=== PATIENT | male | born 1965 | race Caucasian/White ===

== ENCOUNTER 2016-10-03 11:16 | Day surgery (SDC) | payer OTHER ==
[2016-10-02 10:35] LABS: HEMATOCRIT 42.4 % (37.9-51.0); HEMOGLOBIN 14.4 g/dL (13.5-17.0); HGB HCT DIFFERENCE 0.8; MEAN CORPUSCULAR HEMOGLOBIN 31.6 pg (27.0-33.4); MEAN CORPUSCULAR HGB CONC 33.9 g/dL (32.0-36.0); MEAN CORPUSCULAR VOLUME 93 fl (80-97); RED BLOOD COUNT 4.54 10^6/uL (4.35-5.55); RED CELL DISTRIBUTION WIDTH 13.8 % (11.5-14.0)
[2016-10-02 11:01] LABS: ANION GAP 13 (5-19); BLOOD UREA NITROGEN 12 mg/dL (7-20); CARBON DIOXIDE 29 mmol/L (22-30); CHLORIDE 100 mmol/L (98-107); CREATININE RESULT 1.23 mg/dL (0.52-1.25); GLUCOSE 60 mg/dL (75-110); POTASSIUM 4.3 mmol/L (3.6-5.0); SODIUM 142.3 mmol/L (137-145)
[~2016-10-03 11:16] MED LIST: ACETAMINOPHEN 325 MG TABLET PO PRN; BUPIVACAINE HCL 0.25 % INJ/PF (2.5 MG/1 ML) 30 ML VIAL ONE; CEFAZOLIN 1 GM/D5W RTU 1 GM/50 ML RTUPB IV PRN; LIDOCAINE 0.5% INJ-PF (5 MG/ML) 50 ML SDV INJ PRN; RINGERS SOLUTION,LACTATED 1,000 ML IV PRN
[2016-10-03] MEDS ORDERED: MIDAZOLAM 2 MG/2 ML INJ ONE (12:12)
[2016-10-03] MEDS ORDERED: PROPOFOL INJ 200 MG/20 ML VIAL IV ONE (12:12)
[2016-10-03] MEDS ORDERED: FENTANYL CITRATE INJ/PF 250 MCG/5 ML AMPULE ONE (12:12)
[2016-10-03] MEDS ORDERED: MEPERIDINE HCL/PF INJ 25 MG/1 ML DISP.SYRIN IV PRN (12:48)
[2016-10-03] MEDS ORDERED: OXYCODONE-ACETAMINOPHEN 5-325 MG TABLET PO PRN ×3 (12:48→14:15)
[2016-10-03] MEDS ORDERED: DIPHENHYDRAMINE HCL 50 MG/ML VIAL IV PRN (12:48)
[2016-10-03] MEDS ORDERED: FENTANYL CITRATE INJ/PF 100 MCG/2 ML AMPUL IV PRN ×3 (12:48)
[2016-10-03] MEDS ORDERED: PROMETHAZINE HCL INJ 25 MG/1 ML VIAL IV PRN ×2 (12:48)
[2016-10-03] MEDS ORDERED: MORPHINE SULFATE 10 MG/ML INJ IV PRN (12:48)
[2016-10-03] MEDS ORDERED: DEXMEDETOMIDINE INJ 80 MCG/20 ML VIAL IV ONE (13:19)
[2016-10-03] MEDS ORDERED: RINGERS SOLUTION,LACTATED 1,000 ML IV PRN (14:15)
[2016-10-03] MEDS ORDERED: ONDANSETRON HCL INJ/PF 4 MG/2 ML SDV IV PRN (14:15)
--- NOTE | 2016-10-03 14:15 | PDOC DISCHARGE SUMMARY ---
Discharge Summary (SDC) - Discharge Final Diagnosis: Right inguinal hernia Date of Surgery: 10/03/16 Discharge Date: 10/03/16 Condition: Good Treatment or Instructions: Right inguinal hernia repair with mesh. May discharge patient home when met discharge criteria. Follow-up with me in 2 weeks. May shower in 2 days. Keep Steri-Strips on. Stay active but avoid strenuous activity. Prescriptions: Oxycodone HCl/Acetaminophen [Percocet 5-325 mg Tablet] 1 tab PO ASDIR PRN #35 tablet PRN Reason: Discharge Diet: As Tolerated Discharge Activity: Activity As Tolerated - Stay active but avoid strenuous activity. Report the Following to Your Physician Immediately: Fever over 101 Degrees, Unusual Bleeding, Redness, Drainage-Foul Smelling
--- NOTE | 2016-10-03 14:16 | Operative Report ---
Operative Report DATE OF SURGERY: 10/03/16 PREOPERATIVE DIAGNOSIS: Right inguinal hernia POSTOPERATIVE DIAGNOSIS: Right indirect inguinal hernia OPERATION: Right inguinal hernia repair with mesh SURGEON: HERMELINDO RUTHERFORD ANESTHESIA: GA TISSUE REMOVED OR ALTERED: Hernia sac COMPLICATIONS: None ESTIMATED BLOOD LOSS: minimal INTRAOPERATIVE FINDINGS: Indirect inguinal hernia PROCEDURE: Informed consent was obtained. Patient was brought to the operating room and placed on the operating room table in supine position. After satisfactory induction of general anesthesia patient's right groin was prepped and draped in the usual sterile fashion. A transverse right groin incision was made dissection carried down through the subcutaneous tissue, the external oblique was opened along its fascial fibers thus opening the external inguinal ring. The illioinguinal nerve was identified and protected during the dissection. The cord was mobilized at the pubic tubercle. Dissection at the anterior aspect of the cord revealed an indirect inguinal hernia sac which was dissected free from the surrounding structures up to the level of the internal ring. It was opened and high ligation of the sac was then performed at the level of the internal ring. The hernia sac was excised. The direct floor appeared markedly attenuated as well. The iliohypogastric nerve had in an aberrant course and would've been in the way of the repair therefore he was taken by clamping dividing and tying. Mesh repair was performed with [employer] commercial real estate agent mesh the sling ends were brought back together in a sling-like configuration thus re- creating the internal inguinal ring. The mesh laid flat with excellent coverage. A single fixation suture was placed at the pubic tubercle. Hemostasis appeared excellent. External oblique was closed over the repair and the cord structures using running Vicryl suture. Padma's fascia was closed with interrupted Vicryl sutures. Skin was closed with subcuticular running Monocryl suture. Marcaine was injected at the operative site. Patient tolerated procedure well with no apparent complications and was taken to the recovery area in stable condition.
[2016-10-03] MEDS ORDERED: LIDOCAINE 2% INJ-PF (20 MG/ML) 10 ML AMPUL ONE (14:41)
[2016-10-03] MEDS ORDERED: ROCURONIUM BROMIDE INJ 50 MG/5 ML VIAL IV ONE (14:41)
[2016-10-03] MEDS ORDERED: GLYCOPYRROLATE INJ 0.4 MG/2 ML VIAL ONE (14:41)
[2016-10-03] MEDS ORDERED: SUCCINYLCHOLINE CHLORIDE INJ 200 MG/10 ML VIAL ONE (14:41)
[2016-10-03] MEDS ORDERED: NEOSTIGMINE METHYLSULFATE 10 MG/10 ML VIAL ONE (14:41)
[2016-10-03] MEDS ORDERED: KETOROLAC TROMETHAMINE 60 MG/2 ML SDV ONE (14:41)
[2016-10-03] MEDS ORDERED: DEXAMETHASONE SOD PHOSPHATE INJ 4 MG/1 ML VIAL ONE (14:41)
[2016-10-03] MEDS ORDERED: ONDANSETRON HCL INJ/PF 4 MG/2 ML SDV ONE (14:41)
[2016-10-03 17:19] VITALS: BP 104/61
== END 2016-10-03 17:05 | disposition home or self-care (01) ==
LOC: OROUT 11:16
PROVIDERS: ATTEND Surgery
PROC: 0YU50JZ Supplement Right Inguinal Region with Synthetic Substitute, Open Approach (ICD-10-PCS; principal; 2016-10-03 13:00)
DX: K40.90 Unilateral inguinal hernia, without obstruction or gangrene, not specified as recurrent (principal); F41.9 Anxiety disorder, unspecified; F42.9 Obsessive-compulsive disorder, unspecified; Z79.899 Other long term (current) drug therapy
CPT/HCPCS: 36415; 85027; 80048; 88342 ×2; 88302 ×2; 49505; C1781; J2250; J0690; J3490 ×3; J1100; J1885; J3010; J0330; J2405; J2704

== ENCOUNTER 2017-04-12 10:16 | Emergency (ER) | payer OTHER ==
--- NOTE | 2017-04-12 10:55 | ER Document Report ---
ED General - General Mode of Arrival: Ambulatory Information source: Patient TRAVEL OUTSIDE OF THE [place] IN LAST 30 DAYS: No <OZZIE NGAY - Last Filed: 04/12/17 12:37> <BRIANA AGUILAR - Last Filed: 04/12/17 16:35> - General Chief Complaint: Altered Mental Status Stated Complaint: ALTERED MENTAL STATUS Time Seen by Provider: 04/12/17 10:42 Notes: Patient is a 51-year-old male who presents to the emergency department today with complaints of a sensation that something is crawling on him, flying around his head, and biting him. Patient states he has had this sensation for 3 years. Patient states he has been seen multiple times including twice by 2 different business banking manager and nothing seems to help. Patient states he has not been sleeping secondary to this sensation. Patient then goes on to mention that he was given zyprexa once in the past which seemed to relieve these symptoms but he has not been taking that recently. Patient repeats "I am not crazy" and that "if you get a microscope you will see the bugs crawling on me". (OZZIE NAGY) - Related Data Allergies/Adverse Reactions: No Known Allergies Allergy (Verified 04/12/17 10:22) Past Medical History - General Information source: Patient - Social History Smoking Status: Never Smoker Cigarette use (# per day): No Frequency of alcohol use: None Drug Abuse: None Lives with: Family Family History: Reviewed & Not Pertinent - Medical History Medical History: Negative Surgical Hx: Negative - Immunizations Hx Diphtheria, Pertussis, Tetanus Vaccination: No <OZZIE NAGY - Last Filed: 04/12/17 12:37> Review of Systems - Review of Systems Constitutional: No symptoms reported EENT: No symptoms reported Cardiovascular: No symptoms reported Respiratory: No symptoms reported Gastrointestinal: No symptoms reported Genitourinary: No symptoms reported Male Genitourinary: No symptoms reported Musculoskeletal: No symptoms reported Skin: See HPI, Other - sensation that something is biting him Hematologic/Lymphatic: No symptoms reported Neurological/Psychological: No symptoms reported -: Yes All other systems reviewed and negative <OZZIE ANGY - Last Filed: 04/12/17 12:37> Physical Exam <OZZIE NAGY - Last Filed: 04/12/17 12:37> - Vital signs Interpretation: Normal - General General appearance: Appears well, Alert - HEENT Head: Normocephalic, Atraumatic Eyes: Normal Pupils: PERRL - Respiratory Respiratory status: No respiratory distress Chest status: Nontender Breath sounds: Normal Chest palpation: Normal - Cardiovascular Rhythm: Regular Heart sounds: Normal auscultation Murmur: No - Abdominal Inspection: Normal Distension: No distension Bowel sounds: Normal Tenderness: Nontender Organomegaly: No organomegaly - Genitourinary Tenderness: Nontender Scrotum: Other - Area behind scrotum consistent with yeast - Back Back: Normal, Nontender - Extremities General upper extremity: Normal inspection, Nontender, Normal color, Normal ROM , Normal temperature General lower extremity: Normal inspection, Nontender, Normal color, Normal ROM , Normal temperature, Normal weight bearing. No: Jenn's sign - Neurological Neuro grossly intact: Yes Cognition: Normal Orientation: AAOx4 [place]irm[place] Coma Scale Eye Opening: Spontaneous [place] Coma Scale Verbal: Oriented [place] Coma Scale Motor: Obeys Commands [place] Coma Scale Total: 15 Speech: Normal Motor strength normal: LUE, RUE, LLE, RLE Sensory: Normal - Psychological Associated symptoms: Agitated, Anxious, Circumferential speech, Flight of ideas , Manic, Paranoid, Psychomotor agitation, Tactile hallucinations - Skin Skin Temperature: Warm Skin Moisture: Dry Skin Color: Normal <BRIANA AGUILAR - Last Filed: 04/12/17 16:35> - Vital signs Vitals: Temp Pulse Resp BP Pulse Ox 98.3 F 84 20 140/87 H 100 04/12/17 10:19 04/12/17 10:19 04/12/17 10:19 04/12/17 10:19 04/12/17 10:19 - Rectal Notes: Area outside of anus consistent with excoriation (BRIANA AGUILAR) Course - Laboratory Result Diagrams: 04/12/17 10:45 04/12/17 10:45 <OZZIE NAGY - Last Filed: 04/12/17 12:37> - Laboratory Result Diagrams: 04/12/17 10:45 04/12/17 10:45 <BRIANA AGUILAR - Last Filed: 04/12/17 16:35> - Re-evaluation Re-evalutation: 04/12/17 14:40 Patient is evaluated and is describing not sleeping. He is very anxious, describing tactile sensations. Stating that he is seeing things hovering above him. Patient is very restless and has pressured speech. Patient keeps telling me that he is not crazy. Patient states that he has been seen once before and given Zyprexa which seemed to help him. Patient will be held for mental health evaluation. Cogentin and Zyprexa given. 04/12/17 16:33 Patient with increasing paranoia. Patient now meets criteria for IVCD hold. He is medically stable otherwise. (BRIANA AGUILAR) - Vital Signs Vital signs: Temp Pulse Resp BP Pulse Ox 98.3 F 84 20 140/87 H 99 04/12/17 10:19 04/12/17 10:19 04/12/17 10:19 04/12/17 10:19 04/12/17 10:30 - Laboratory Laboratory results interpreted by me: 04/12/17 10:45 Creatinine 1.44 H Est GFR (Non-Af Amer) 52 L Salicylates < 1.0 L Acetaminophen < 10 L Discharge <OZZIE NAGY - Last Filed: 04/12/17 12:37> <BRIANA AGUILAR - Last Filed: 04/12/17 16:35> - Discharge Clinical Impression: Hallucinations, Acute psychosis Condition: Stable Disposition: PSYCH HOSP/UNIT Referrals: PHIL RODRÍGUEZ MD [Primary Care Provider] - Follow up as needed Scribe Attestation: 04/12/17 16:35 I personally performed the services described in the documentation, reviewed and edited the documentation which was dictated to the scribe in my presence, and it accurately records my words and actions. (BRIANA AGUILAR) Scribe Documentation - Scribe Written by René:: René Brown, 04/12/2017, 1242 acting as scribe for :: Aime <OZZIE NAGY - Last Filed: 04/12/17 12:37>
[2017-04-12 10:56] LABS: ABSOLUTE EOSINOPHILS # (AUTO) 0.2 10^3/uL (0.0-0.6); ABSOLUTE LYMPHOCYTES (AUTO) 1.4 10^3/uL (0.5-4.7); ABSOLUTE MONOCYTES (AUTO) 0.6 10^3/uL (0.1-1.4); ABSOLUTE NEUT (AUTO) 5.4 10^3/uL (1.7-8.2); BASOPHILS % (AUTO) 0.2 % (0-2); HEMATOCRIT 40.3 % (37.9-51.0); HEMOGLOBIN 14.4 g/dL (13.5-17.0); HGB HCT DIFFERENCE 2.9; LYMPHOCYTES % (AUTO) 18.4 % (13-45); MEAN CORPUSCULAR HEMOGLOBIN 32.2 pg (27.0-33.4); MEAN CORPUSCULAR HGB CONC 35.7 g/dL (32.0-36.0); MEAN CORPUSCULAR VOLUME 90 fl (80-97); MONOCYTES % (AUTO) 8.3 % (3-13); RED BLOOD COUNT 4.48 10^6/uL (4.35-5.55); RED CELL DISTRIBUTION WIDTH 13.7 % (11.5-14.0); SEGMENTED NEUTROPHILS % (AUTO) 71.1 % (42-78); WHITE BLOOD COUNT 7.6 10^3/uL (4.0-10.5)
[2017-04-12 11:29] LABS: ALANINE AMINOTRANSFERASE 25 U/L (21-72); ALBUMIN 4.6 g/dL (3.5-5.0); ALKALINE PHOSPHATASE 68 U/L (38-126); ANION GAP 13 (5-19); ASPARTATE AMINO TRANSFERASE 23 U/L (17-59); BILIRUBIN,DIRECT 0.3 mg/dL (0.0-0.4); BILIRUBIN,TOTAL 0.6 mg/dL (0.2-1.3); BLOOD UREA NITROGEN 12 mg/dL (7-20); CALCIUM 9.6 mg/dL (8.4-10.2); CARBON DIOXIDE 28 mmol/L (22-30); CHLORIDE 104 mmol/L (98-107); CREATININE RESULT 1.44 mg/dL (0.52-1.25); GLUCOSE 76 mg/dL (75-110); MAGNESIUM 2.3 mg/dL (1.6-2.3); POTASSIUM 3.9 mmol/L (3.6-5.0); TOTAL PROTEIN 7.5 g/dL (6.3-8.2)
[2017-04-12 11:31] LABS: ALCOHOL < 10 mg/dL (NONE DETECTED)
[2017-04-12 11:52] LABS: APPEARANCE,URINE CLEAR; BILIRUBIN,URINE NEGATIVE (NEGATIVE); GLUCOSE, URINE NEGATIVE (NEGATIVE); KETONES,URINE NEGATIVE (NEGATIVE); LEUKOCYTE ESTERASE,URINE NEGATIVE (NEGATIVE); NITRITE,URINE NEGATIVE (NEGATIVE); PROTEIN,URINE NEGATIVE (NEGATIVE); URINE SPECIFIC GRAVITY 1.005; UROBILINOGEN,URINE NEGATIVE mg/dL (<2.0)
[2017-04-12 12:05] LABS: URINE BARBITURATES SCREEN NEGATIVE; URINE METHADONE SCREEN NEGATIVE; URINE OPIATES LOW NEGATIVE; URINE PHENCYCLIDINE SCREEN NEGATIVE
[2017-04-12] MEDS ORDERED: FLUCONAZOLE 100 MG TABLET PO ONE (14:05)
[2017-04-12] MEDS ORDERED: OLANZAPINE 5 MG TAB.RAPDIS PO ONE (14:05)
[2017-04-12] MEDS ORDERED: BENZTROPINE MESYLATE 1 MG TABLET PO ONE (14:15)
--- NOTE | 2017-04-12 16:28 | PSYCHOLOGICAL NOTE ---
Psych Note - Psych Note Psych Note: Pt visibly nervous, apprehensive, anxious, pt rambling, fast speech with rapid changes in topics. Pt states he has been having issues for 3 years for "I feel like I am being bit or stung, that I have scabies or lice, don't you see I have something hanging from my ear." Pt states his only DX is OCD and is not on any medications for this. Pt states he feels it's gotten worse this week and states "sometime's I'd rather be then feel this." When asked for SI/HI patient denies both, stating he "puts trust in God, I would never hurt myself." Patient disclosed concern of feeling bugs biting and stinging him. Patient describes the feeling as little hairs or static feeling. Patient continued to state that he feels them all over the place from his scalp to his feet. Patient disclosed this is been going on for 3 years and feels like Job from the Bible. Patient then stated "I feel like I have been encouraged by the D-[id number]-I- L." Patient explains that he always spells this because he does not feel it appropriate to see the name. Patient continued to focus on his tactile delusion of parasitosis. Patient is observed constantly scratching and attempting to show clinician where he is being stung in bite at that moment in time. Patient disclosed that is more severe at night and that is starting to invade his genitalia and rectum. Patient states that sometimes he sees them floating in front of him and then can feel them land on him and crawl patient states that sometimes when he is laying on his pillow they are pulling his hair. Patient denies any history head or back trauma. She disclosed he has no furniture in his home because the bugs may in fact the furniture, is on disability and cannot work, cannot sleep, and approximately 3 years ago when this first started had ended a relationship because of it. Patient disclosed he cannot continue living like this. Patient is alert and orientated to person, place, time. Mood is manic with anxious affect. Patient denies suicidal and homicidal ideation. Mixed delusions are noted; tactile, religiosity and parasitosis. Eye contact was fair. Thought process was tangential with rumination on somatic symptoms. Thought content was focused on delusions. Conversational speech was pressured. Attention and concentration were poor. Insight, judgment, impulse control is poor 300.3 (F42) obsessive-compulsive disorder per history provided by patient 298.9 (F29) unspecified psychotic disorder Impression\\plan: Patient is recommended for IVC. Patient is suffering from mixed delusions; tactile, religiosity and parasitosis patient is observed scratching his skin and pacing. Patient is unable to focus and communicate as his agitation increases. Unable to tell reality from his delusions. She will be reevaluated. Dr. Barker was consulted and the care management of this patient; attending physician is agreement with her conditions and disposition.
[2017-04-12] MEDS ORDERED: CHLORPROMAZINE HCL 50 MG TABLET PO PRN (16:41)
[2017-04-12] MEDS ORDERED: LORAZEPAM INJ 2 MG/1 ML VIAL IM ONE (23:17)
[2017-04-12] MEDS ORDERED: DIPHENHYDRAMINE HCL 50 MG/ML VIAL IM ONE (23:18)
[2017-04-12] MEDS ORDERED: HALOPERIDOL LACTATE INJ 5 MG/1 ML VIAL ONE (23:30)
--- NOTE | 2017-04-13 09:36 | EKG REPORT ---
SEVERITY:- NORMAL ECG - SINUS RHYTHM : Confirmed by: Nancy Diaz 13-Apr-2017 09:34:59
[2017-04-13] MEDS ORDERED: CHLORPROMAZINE HCL INJ 25 MG/1 ML AMPULE IM PRN (09:49)
[2017-04-13] MEDS ORDERED: OLANZAPINE 5 MG TABLET PO SCH (10:00)
--- NOTE | 2017-04-13 10:19 | ER Document Report ---
Doctor's Note Notes: 04/13/17 10:16 Rounds: Chart reviewed and patient interviewed. Patient is being evaluated for nonspecific psychosis. Vital signs are all normal. All lab studies were normal. Patient has been started on Zyprexa 5 mg twice a day with Thorazine IM as needed. Patient appears to be medically stable for transfer or discharge. Kourtney Cedeno MD
--- NOTE | 2017-04-13 14:50 | PSYCHOLOGICAL NOTE ---
Psych Note - Psych Note Psych Note: Pt visibly nervous, apprehensive, anxious, pt rambling, fast speech with rapid changes in topics. Pt states he has been having issues for 3 years for "I feel like I am being bit or stung, that I have scabies or lice, don't you see I have something hanging from my ear." Pt states his only DX is OCD and is not on any medications for this. Pt states he feels it's gotten worse this week and states "sometime's I'd rather be then feel this." When asked for SI/HI patient denies both, stating he "puts trust in God, I would never hurt myself." Chart review conducted: Attending nurse noted at 2310: patient ambulatory to restroom across from rm #[id number]; sitter encouraged patient to use restroom between 45 and 46; patient refused and walked to the other bathroom anyway. patient overheard in the restroom rambling with inaudible speech and then sounds of "hitting"; unsure if patient was hitting himself; security called;Dr. Faust made aware. patient verbally encourage to come out of the bathroom; patient repeatedly states he is using the restroom. security flex utility officer Bruno informed the patient he has two minutes to be done; patient stated he is fine and then started the inaudible speech pattern again; MD made aware of patient's continued resistance; Per MD, get patient from the restroom and back to room; med orders received with restraint orders for physical safety if noted that patient is physically harming self. patient continues to be resistant; security officers had to physically assist patient to room; patient begging not to be restrained; patient informed by this nurse that he will not be restrained if at this point if he is calm and cooperative; patient does not seem to have any physical injuries. patient is complaining of the need to wash his hands and the need to pick up and delivery driver paper off the floor (no paper noted on floor); patient offered a wet wash cloth to wash his hand; patient medicated as ordered. patient verbally resistant with meds; patient stated he doesn't want to be knocked out; patient made aware these meds are to help him calm down. sitter remains in place for pt observation. Patient was not physically restrained Clinician conducted check in with patient: Patient disclosed he is "alright." when asked about his evening he disclosed he had a "rough night." Patient was asked what happened in the bathroom last night, he disclosed "they grabbed me out of the bathroom and I was not finished... I needed to wash my hands." When asked what was happening in the bathroom because there were noises noted, he stated "I was aggravated and not feeling well." Patient is alert and orientated to person, place, time. Mood is manic with anxious affect. Patient denies suicidal and homicidal ideation. Mixed delusions are noted; tactile, religiosity and parasitosis. Eye contact was fair. Thought process was tangential with rumination on somatic symptoms. Thought content was focused on delusions. Conversational speech was pressured. Attention and concentration were poor. Insight, judgment, impulse control is poor 300.3 (F42) obsessive-compulsive disorder per history provided by patient 298.9 (F29) unspecified psychotic disorder Impression\\plan: Patient is recommended to continue IVC. Patient is suffering from mixed delusions; tactile, religiosity and parasitosis patient is observed scratching his skin and pacing. Patient is unable to focus and communicate as his agitation increases. Unable to tell reality from his delusions. Patient was accepted to [facility]; Transportation will occur today. Dr. Barker was consulted and the care management of this patient; attending physician is agreement with her conditions and disposition.
[2017-04-13 15:07] VITALS: BP 108/63
== END 2017-04-13 15:28 ==
LOC: ER 10:16
DX: R41.82 Altered mental status, unspecified (principal); R44.3 Hallucinations, unspecified; F23 Brief psychotic disorder; F42.9 Obsessive-compulsive disorder, unspecified
CPT/HCPCS: 93005; 99285; 96372; 36415; 80307 ×4; 83735; 85025; 80053; 81001; 93010; J3490 ×2; J1200; J2060

== ENCOUNTER 2018-01-23 19:36 | Emergency (ER) | payer OTHER ==
[2018-01-23] MEDS ORDERED: ONDANSETRON 4 MG TAB.RAPDIS PO ONE (21:33)
[2018-01-23 22:08] LABS: ABSOLUTE BASOPHILS # (AUTO) 0.1 10^3/uL (0.0-0.2); ABSOLUTE EOSINOPHILS # (AUTO) 0.1 10^3/uL (0.0-0.6); ABSOLUTE LYMPHOCYTES (AUTO) 1.8 10^3/uL (0.5-4.7); ABSOLUTE MONOCYTES (AUTO) 0.9 10^3/uL (0.1-1.4); ABSOLUTE NEUT (AUTO) 7.5 10^3/uL (1.7-8.2); BASOPHILS % (AUTO) 0.7 % (0-2); EOSINOPHILS % (AUTO) 1.1 % (0-6); HEMATOCRIT 40.8 % (37.9-51.0); HEMOGLOBIN 14.3 g/dL (13.5-17.0); LYMPHOCYTES % (AUTO) 17.6 % (13-45); MEAN CORPUSCULAR HEMOGLOBIN 31.8 pg (27.0-33.4); MEAN CORPUSCULAR HGB CONC 35.1 g/dL (32.0-36.0); MEAN CORPUSCULAR VOLUME 91 fl (80-97); MONOCYTES % (AUTO) 8.2 % (3-13); PLATELET COUNT 346 10^3/uL (150-450); RED BLOOD COUNT 4.49 10^6/uL (4.35-5.55); RED CELL DISTRIBUTION WIDTH 14.4 % (11.5-14.0); SEGMENTED NEUTROPHILS % (AUTO) 72.4 % (42-78); TOTAL CELLS COUNTED % (AUTO) 100 %; WHITE BLOOD COUNT 10.4 10^3/uL (4.0-10.5)
[2018-01-23 22:27] LABS: ANION GAP 14 (5-19); BLOOD UREA NITROGEN 16 mg/dL (7-20); CALCIUM 9.8 mg/dL (8.4-10.2); CARBON DIOXIDE 26 mmol/L (22-30); CHLORIDE 102 mmol/L (98-107); GLUCOSE 78 mg/dL (75-110); LIPASE 83.4 U/L (23-300); POTASSIUM 4.3 mmol/L (3.6-5.0); SODIUM 141.8 mmol/L (137-145)
[2018-01-23 22:28] LABS: APPEARANCE,URINE CLEAR; BILIRUBIN,URINE NEGATIVE (NEGATIVE); COLOR,URINE STRAW; GLUCOSE, URINE NEGATIVE (NEGATIVE); KETONES,URINE NEGATIVE (NEGATIVE); LEUKOCYTE ESTERASE,URINE NEGATIVE (NEGATIVE); NITRITE,URINE NEGATIVE (NEGATIVE); PROTEIN,URINE NEGATIVE (NEGATIVE); URINE SPECIFIC GRAVITY 1.012; UROBILINOGEN,URINE NEGATIVE mg/dL (<2.0)
[2018-01-23] MEDS ORDERED: RINGERS SOLUTION,LACTATED 1,000 ML IV ONE (22:56)
--- NOTE | 2018-01-23 23:02 | RADIOLOGY REPORT (SQ) ---
TESTICULAR ULTRASOUND CLINICAL HISTORY: 52-year-old male with testicular pain. TECHNIQUE: Multiple sonographic images are taken of the testicles using both grayscale and color Doppler. COMPARISON: None. FINDINGS: Right testis: The right testicle measures 3.4 x 4.3 x 2.5 cm. Testicular parenchyma is otherwise within normal limits. Blood flow to the right testis is within normal. The right epididymis 1.4 cm x 1.6 x 1.3 cm. No epididymal cysts or masses within the visualized portions. Blood flow to the epididymis is within normal limits. There is a 3 millimeter varicocele. There is a small hydrocele. Left testis: The left testis measures 3.2 x 3.5 x 2.9 cm. Punctate calcification is demonstrated. The parenchyma is otherwise within normal limits. Blood flow is within normal. The left epididymis 1.5 x 1.1 x 1.0 cm. No epididymal cysts or masses within the visualized portions. There is no significant varicocele. There is a small hydrocele. IMPRESSION: Bilateral small hydroceles. Otherwise unremarkable exam.
--- NOTE | 2018-01-23 23:29 | RADIOLOGY REPORT (SQ) ---
CT OF THE ABDOMEN AND PELVIS WITH IV CONTRAST Clinical History: 52-year-old male with abdominal pain. Technique: Multiple axial images are taken from the lung bases down to the proximal thigh with the use of IV contrast. Images are then reconstructed in the sagittal and coronal planes. This exam was performed according to our departmental dose-optimization program which includes use of Automated Exposure Control, adjustment of the mA and/or kV according to patient size and/or use of iterative reconstruction technique. Comparison: None available. Findings: CT abdomen: Lung Bases: The lung bases demonstrate minimal bibasilar atelectasis. There is no evidence of free air. Liver: There is a bilobed area of decreased attenuation within the inferior right lobe of the liver that measures 3.2 x 2.0 cm consistent with a cyst. Gallbladder: Gallbladder is decompressed. Common bile duct: The common bile duct appears within normal limits. Spleen: The spleen is within normal limits. Adrenal glands: The adrenal glands are unremarkable. Pancreas: The pancreas is within normal. Stomach: The stomach is within normal limits allowing for lack of adequate distention. Small bowel: The small bowel measures within normal limits. Small bowel mesentery: The small bowel mesentery is grossly unremarkable. Retroperitoneum: The descending aorta measures within normal limits. There is no significant retroperitoneal lymphadenopathy. Kidneys: The kidneys opacify with contrast appropriately. There is no hydronephrosis nor obstructing stone. The portions of the ureters which are visualized measure within normal limits. CT Pelvis: Appendix: The appendix is visualized measuring within normal limits. Large bowel: Multiple diverticula are seen involving the colon. Bladder: The bladder is within normal limits for the amount of distention. Pelvic wall: The pelvic wall and abdominal wall are grossly unremarkable. Bones: Osseous structures are within normal limits for patient's age. : Evaluation of the system is unremarkable. Free fluid: There is no free fluid in the pelvis. IMPRESSION: 1. Diverticulosis without CT evidence for acute diverticulitis. 2. Otherwise unremarkable CT for acute pathology.
[2018-01-23 23:53] LABS: CHLAM PCR NOT DETECTED (NOT DETECT); GON PCR NOT DETECTED (NOT DETECT)
[2018-01-24 00:05] VITALS: BP 128/78
[2018-01-24] MEDS ORDERED: KETOROLAC TROMETHAMINE INJ/PF 30 MG/1 ML SDV IV ONE (00:05)
--- NOTE | 2018-01-24 00:07 | ER Document Report ---
ED General - General Chief Complaint: Groin Pain Stated Complaint: GROIN PAIN Time Seen by Provider: 01/23/18 21:05 Mode of Arrival: Ambulatory Information source: Patient TRAVEL OUTSIDE OF THE [place] IN LAST 30 DAYS: No - HPI Patient complains to provider of: groin pain Onset: Other Onset/Duration: Gradual Quality of pain: Sharp Severity: Mild Associated symptoms: Nausea. denies: Chest pain, Fever, Vomiting Exacerbated by: Standing Relieved by: Denies Similar symptoms previously: Yes Recently seen / treated by doctor: No Notes: Patient is a 52 year old male with OCD and anxiety presents with right groin pain for the past 6 days. States pain is worse when he gets out of bed in the morning but will gradually improves once he is up and walking around. Pain is sharp and stabbing when present and will radiate into his right testicle at times. Associated nausea but no vomiting or diarrhea. Patient reports history of right inguinal hernia repair without complication back in September 2016. Denies any recent heavy lifting or trauma, fever, abdominal pain, diarrhea, constipation, dysuria, gross hematuria, or urinary incontinence. Reports recent increase in anxiety after being out of his olanzapine and paroxetine since the beginning of the month. - Related Data Allergies/Adverse Reactions: No Known Allergies Allergy (Verified 04/12/17 10:22) Past Medical History - General Information source: Patient, [facility]LY [facility] Records - Social History Smoking Status: Never Smoker Chew tobacco use (# tins/day): No Frequency of alcohol use: None Drug Abuse: None Lives with: Alone Family History: Reviewed & Not Pertinent Patient has suicidal ideation: No Patient has homicidal ideation: No - Medical History Notes: OCD, anxiety - Past Medical History Cardiac Medical History: Denies: Hx Coronary Artery Disease, Hx Heart Attack, Hx Hypertension Pulmonary Medical History: Denies: Hx Asthma, Hx Bronchitis, Hx COPD, Hx Pneumonia Neurological Medical History: Denies: Hx Cerebrovascular Accident, Hx Seizures Renal/ Medical History: Denies: Hx Peritoneal Dialysis GI Medical History: Reports: Hx Hiatal Hernia Musculoskeletal Medical History: Denies Hx Arthritis Psychiatric Medical History: Reports: Hx Obsessive Compulsive Disorder - Immunizations Hx Diphtheria, Pertussis, Tetanus Vaccination: No Review of Systems - Review of Systems Notes: REVIEW OF SYSTEMS: CONSTITUTIONAL : Denies fever, chills, or sweats. Denies recent illness. Denies weight loss, recent hospitalizations. EENT: Denies visual changes, eye pain. Denies nasal or sinus congestion or discharge. Denies sore throat, oral lesions, difficulty swallowing. CARDIOVASCULAR: Denies chest pain. Denies palpitations. Denies lower extremity edema. RESPIRATORY: Denies cough, cold, or chest congestion. Denies shortness of breath, wheezing. GASTROINTESTINAL: Denies abdominal distention. Denies vomiting, or diarrhea. Denies blood in vomitus, stools, or per rectum. Denies black, tarry stools. Denies constipation. GENITOURINARY: Denies difficulty urinating, painful urination, frequency, blood in urine, MUSCULOSKELETAL: Denies back or neck pain or stiffness. Denies joint pain or swelling. SKIN: Denies rash, lesions or sores. HEMATOLOGIC : Denies easy bruising or bleeding. LYMPHATIC: Denies swollen glands. NEUROLOGICAL: Denies confusion or altered mental status. Denies passing out or loss of consciousness. Denies dizziness or lightheadedness. Denies headache. Denies weakness or paralysis. Denies problems difficulty with ambulation, slurred speech. Denies sensory loss, numbness, or tingling. Denies seizures. PSYCHIATRIC: Reports anxiety. Denies depression, suicidal ideation, or homicidal ideation. Denies visual or auditory hallucinations. Physical Exam - Vital signs Vitals: Temp Pulse BP Pulse Ox 98.7 F 96 127/79 H 94 01/23/18 19:45 01/23/18 19:45 01/23/18 19:45 01/23/18 19:45 - Notes Notes: PHYSICAL EXAMINATION: GENERAL: Well-appearing, well-nourished and in no acute distress. HEAD: Atraumatic, normocephalic. EYES: Pupils equal round and reactive to light, extraocular movements intact, sclera anicteric, conjunctiva are normal. ENT: Nares patent, oropharynx clear without exudates. Moist mucous membranes. NECK: Normal range of motion, supple without lymphadenopathy LUNGS: Breath sounds clear to auscultation bilaterally and equal. No wheezes rales or rhonchi. HEART: Regular rate and rhythm without murmurs ABDOMEN: Soft, nontender, nondistended abdomen. No guarding, no rebound. No masses appreciated. : No testicular erythema or swelling. Cremasteric reflex present bilaterally. No reproducible tenderness. No inguinal hernias appreciated. Musculoskeletal: Normal range of motion, no pitting or edema. No cyanosis. NEUROLOGICAL: Cranial nerves grossly intact. Normal speech, normal gait. Normal sensory, motor exams PSYCH: anxious, hard to direct, denies depression, SI, HI SKIN: Warm, Dry, normal turgor, no rashes or lesions noted. Course - Re-evaluation Re-evalutation: 01/24/18 12:29 Laboratory 01/23/18 01/23/18 01/23/18 21:50 21:50 21:50 WBC 10.4 RBC 4.49 Hgb 14.3 Hct 40.8 MCV 91 MCH 31.8 MCHC 35.1 RDW 14.4 H Plt Count 346 Seg Neutrophils % 72.4 Lymphocytes % 17.6 Monocytes % 8.2 Eosinophils % 1.1 Basophils % 0.7 Absolute Neutrophils 7.5 Absolute Lymphocytes 1.8 Absolute Monocytes 0.9 Absolute Eosinophils 0.1 Absolute Basophils 0.1 Sodium 141.8 Potassium 4.3 Chloride 102 Carbon Dioxide 26 Anion Gap 14 BUN 16 Creatinine 1.31 H Est GFR ( Amer) > 60 Est GFR (Non-Af Amer) 57 L Glucose 78 Calcium 9.8 Lipase 83.4 Urine Color STRAW Urine Appearance CLEAR Urine pH 6.0 Ur Specific [place] 1.012 Urine Protein NEGATIVE Urine Glucose (UA) NEGATIVE Urine Ketones NEGATIVE Urine Blood SMALL H Urine Nitrite NEGATIVE Urine Bilirubin NEGATIVE Urine Urobilinogen NEGATIVE Ur Leukocyte Esterase NEGATIVE Urine WBC (Auto) 0 Urine RBC (Auto) 1 Urine Bacteria (Auto) TRACE Squamous Epi Cells Auto <1 Urine Mucus (Auto) FEW Urine Ascorbic Acid NEGATIVE Chlamydia DNA (PCR) N.gonorrhoeae DNA (PCR) 01/23/18 21:50 WBC RBC Hgb Hct MCV MCH MCHC RDW Plt Count Seg Neutrophils % Lymphocytes % Monocytes % Eosinophils % Basophils % Absolute Neutrophils Absolute Lymphocytes Absolute Monocytes Absolute Eosinophils Absolute Basophils Sodium Potassium Chloride Carbon Dioxide Anion Gap BUN Creatinine Est GFR ( Amer) Est GFR (Non-Af Amer) Glucose Calcium Lipase Urine Color Urine Appearance Urine pH Ur Specific [place] Urine Protein Urine Glucose (UA) Urine Ketones Urine Blood Urine Nitrite Urine Bilirubin Urine Urobilinogen Ur Leukocyte Esterase Urine WBC (Auto) Urine RBC (Auto) Urine Bacteria (Auto) Squamous Epi Cells Auto Urine Mucus (Auto) Urine Ascorbic Acid Chlamydia DNA (PCR) NOT DETECTED N.gonorrhoeae DNA (PCR) NOT DETECTED Abdomen/Pelvis CT 01/23/18 00:00 IMPRESSION: 1. Diverticulosis without CT evidence for acute diverticulitis. 2. Otherwise unremarkable CT for acute pathology. Scrotum Ultrasound 01/23/18 21:33 IMPRESSION: Bilateral small hydroceles. Otherwise unremarkable exam. 52-year-old male with history of OCD presents with complaint of right lower quadrant pain that started 1 week prior to arrival. Patient states that he awoke with a stabbing pain in the right lower quadrant which radiated into his testicles. The pain is intermittent. He denies any injury. He does have a history of hernia repair with mesh in September 2016 which he states was not complicated. Patient has a normal physical exam including cremasteric reflex, testicular exam. Pain is not reproducible. There is no swelling or erythema of the testicles. There is no evidence of hernia. CBC is without leukocytosis or anemia. CMP shows mild HPI which was treated with 1 L of normal saline. Urinalysis shows a small amount of blood but without evidence of urinary tract infection. CT of the abdomen was obtained and showed no evidence of appendicitis, incarcerated hernia, diverticulitis, renal stone. Ultrasound of the testicles were also performed and showed no evidence of torsion. Patient was given Toradol for his pain during his ED course. He is extremely difficult to direct as he continuously brings up new symptoms every time he is checked on. Upon discharge patient requesting refill medications of his olanzapine and peroxatine which was given to him. Patient provided the opportunity to ask questions, and express concerns. Discharge instructions discussed. Patient is agreeable with discharge home. Return indications explained and discussed with the patient who displays understanding. Patient encouraged to return to the emergency department immediately with any concerns. After performing a Medical Screening Examination, I estimate there is LOW risk for ACUTE APPENDICITIS, BOWEL OBSTRUCTION, ACUTE CHOLECYSTITIS, PERFORATED DIVERTICULITIS, INCARCERATED HERNIA, PANCREATITIS, TESTICULAR TORSION thus I consider the discharge disposition reasonable. Also, there is no evidence or peritonitis, sepsis, or toxicity. I have reevaluated this patient multiple times and no significant life threatening changes are noted. The patient and I have discussed the diagnosis and risks, and we agree with discharging home with close follow-up with the understanding that symptoms and presentations can change. We also discussed returning to the Emergency Department immediately if new or worsening symptoms occur. We have discussed the symptoms which are most concerning (e.g., bloody stool, fever, changing or worsening pain, intractable vomiting - standard verbal up date) that necessitate immediate return. 01/24/18 14:11 01/24/18 14:13 - Vital Signs Vital signs: Temp Pulse Resp BP Pulse Ox 98.9 F 70 16 128/78 H 98 01/24/18 00:04 01/24/18 00:04 01/24/18 00:04 01/24/18 00:04 01/24/18 00:04 - Laboratory Result Diagrams: 01/23/18 21:50 01/23/18 21:50 Laboratory results interpreted by me: 01/23/18 01/23/18 01/23/18 21:50 21:50 21:50 RDW 14.4 H Creatinine 1.31 H Est GFR (Non-Af Amer) 57 L Urine Blood SMALL H - Diagnostic Test Radiology reviewed: Image reviewed, Reports reviewed Discharge - Discharge Clinical Impression: Testicular pain, Renal insufficiency, Medication refill Groin strain Qualifiers: Encounter type: initial encounter Laterality: right Qualified Code(s): S76.211A - Strain of adductor muscle, fascia and tendon of right thigh, initial encounter Blister of foot Qualifiers: Encounter type: initial encounter Laterality: left Qualified Code(s): S90.822A - Blister (nonthermal), left foot, initial encounter Hematuria Qualifiers: Hematuria type: unspecified type Qualified Code(s): R31.9 - Hematuria, unspecified Condition: Good Disposition: HOME, SELF-CARE Instructions: Hematuria ([facility]), Muscle Strain ([facility]), Myalagia (Muscle Pain) ([facility] ) Additional Instructions: Follow up with your physician tomorrow for further care or return to the ED IMMEDIATELY if symptoms worsen or new concerns occur. If you cannot afford to follow up with your primary care physician a list of low cost clinics have been provided at the end of your discharge papers as well. Prescriptions: Ibuprofen [Motrin 600 Mg Tablet] 600 mg PO TID #15 tablet Olanzapine 15 mg PO DAILY #14 tablet Ondansetron [Zofran Odt 4 mg Tablet] 1 - 2 tab PO Q4H PRN #15 tab.rapdis PRN Reason: For Nausea/Vomiting Paroxetine HCl 20 mg PO DAILY #14 tablet
== END 2018-01-24 00:50 | disposition home or self-care (01) ==
LOC: ER 19:36
DX: S76.211A Strain of adductor muscle, fascia and tendon of right thigh, initial encounter (principal); S90.822A Blister (nonthermal), left foot, initial encounter; N50.812 Left testicular pain; N50.811 Right testicular pain; R10.2 Pelvic and perineal pain; R31.9 Hematuria, unspecified; N28.9 Disorder of kidney and ureter, unspecified; N43.2 Other hydrocele; X58.XXXA Exposure to other specified factors, initial encounter
CPT/HCPCS: 99284; 96374; 36415; 83690; 85025; 80048; 81001; 87491; 87591; 76870; 93976; 74177; S0119; J1885; J7120